=== PATIENT | female | born 1985 | race African-American/Black ===

== ENCOUNTER 2022-08-08 15:22 | Emergency (ER) | payer BC ==
[~2022-08-08] VITALS: Ht 162.6 cm; Wt 90.7 kg
[~2022-08-08 15:22] MED LIST: AMOXICILLIN500 MG PO; ATUSS DS OR; LORTAB 5 OR; NO HOME MEDS; PENICILLN VK500 M1 OR; ULTRAM50 M1 PO; ULTRAM50 MG OR; ZPAK OR
[2022-08-08 15:54] VITALS: BP 156/102
[2022-08-08 15:56] VITALS: BP 136/98
[2022-08-08 16:00] VITALS: BP 134/88
[2022-08-08 16:03] LABS: URINE BILIRUBIN - DIPSTICK NEGATIVE (NEGATIVE); URINE BLOOD DIPSTICK LARGE (NEGATIVE); URINE COLOR YELLOW; URINE GLUCOSE - DIPSTICK 500 mg/dL (NEGATIVE); URINE KETONE NEGATIVE (NEGATIVE); URINE PH 5.5 (4.5-8.0); URINE PROTEIN - DIPSTICK NEGATIVE (NEG-TRACE); URINE UROBILINOGEN - DIPSTICK 0.2 E.U./dL (0.2)
[2022-08-08 16:06] LABS: URINE LEUK ESTERASE SMALL (NEGATIVE); URINE NITRITE - DIPSTICK NEGATIVE (Negative)
[2022-08-08 16:12] LABS: URINE SQUAMOUS EPITHELIAL CELL FEW EPI/hpf (0-FEW)
[2022-08-08 17:00] VITALS: BP 132/94
[2022-08-08 17:10] VITALS: BP 132/94
[2022-08-08] MEDS ORDERED: OMNI-PAC300 MG PO (17:19)
== END 2022-08-08 17:43 | disposition home or self-care (01) | DRG 690 ==
LOC: ED 15:22
PROVIDERS: Family Medicine
DX: N39.0 Urinary tract infection, site not specified (principal); R10.11 Right upper quadrant pain